=== PATIENT | female | born 1990 | race Caucasian/White ===

== ENCOUNTER 2018-03-04 11:06 | Inpatient (IN) | payer BC, OTHER ==
[~2018-03-04] VITALS: Ht 167.6 cm; Wt 79.4 kg
--- NOTE | 2018-03-05 14:20 | NUR ---
PRE-ASSESSMENT: assessed pt in intake office pt is extremely intoxicated, no Labored breathing noted V/S WNL. pt is slurring her words and appears to be a poor historian on usage and what treat facilities she attended. explained well and thoroughly unit facility and protocols pt verbalized she understands.
--- NOTE | 2018-03-05 15:15 | NUR ---
ADMISSION Patient arrived on the unit at 1515 with WELL PULLER HEAD, noted with unsteady gait. Patients body search completed by female WELL PULLER HEAD, no contraband was found. Patients body assessment completed, noted with multiple track montgomery on bilateral hands and right foot. Patient also noted with scabs and scars on chest per patient from skin picking, no open wounds were noted, no breakdown or discoloration was noted. Patient noted with swelling non pitting to left foot. Patient was oriented to unit and to room, education regarding call light use was provided. Patient is alert and oriented x4, reports no known drug or food allergies. Patient is very intoxicated. Noted slow responsive, eyes closed, nodding off, slurred speech, disheveled, somnolent, lethargic, but responsive to verbal stimuli and able to open eyes upon command. Patient noted to be a poor historian, has disorganized thoughts. Has depressed mood, tearful at time, anxious and worried with flat affect. BP: 111/59 HR: 88 T: 98.4 O2 SAT: 93%. Patients pupils are equal and slow reactive, 3mm. Lungs clear upon ausculation. respiration are even and unlabored. Abdomen is soft and non distended, bowel sounds heard in all quadrants. Patient reports she currently resides in [facility] with her parents. Reports she is currently unemployed. Reports he primary care physician is Dr. Alvarez in [facility]. Patient reports family history of substance use: Grandfather " he was an alcoholic" Patient denies any history of seizures. Patient reports that in that past has had an episode of overdose, reports three weeks ago she overdosed on heroin, and her friend gave her Narcan, she did not receive any medical care. Patient reports past medical history of: anxiety, depression, OCD, ADD. Patient denies any SI/SA. Patient denies any involuntary psychiatric hospitalization. patient with substance use of: 1. Klonopin, began using Klonopin at the age of [age] years old and for the past three years has been taking 2 mg PO QD, last took 03/05/2018 4mg PO approximately 1300. 2. heroin, began using heroin at the age of [age] years old, and for the past 2 months has been taking 1 gram QD IV, last used on 03/02/2018 at 1300 1 gram. 3. Suboxone, began taking Suboxone 3 days ago, and for the past 3 days reports she is taking 8mg SL QD. Patient also reported that prior to starting Suboxone was taking Subutex 18mg SL QID for three weeks, reports she continued to use heroin, while on Subutex. 4. Methamphetamine, patient reports began using 6 years ago, and for the past 2 years has been taking 3 grams QD IV, last used: 03/04/2018 5. marijuana, [facility]. reports occasional use, non daily. last used 03/01/2018 , 1 gram. 6. etoh, occasional use, reports rarely drinks, but today consumed seven beers. Patient reports common s/sx of her withdrawal are: " anxiety, panic attacks, craving, restless legs, anxiety, body aches, sweats, and tremors. Patient reports she has intended to detox on her own before, with no success. Patient does report longest period of sobriety: January 24, 2014-December 2014. Patient reports treatment history of: [facility]: Last Month for 3 days, completed then was taken to [facility] was there for two days, and left AMA. Patient reports she the reason she uses drugs is because " i don't wanna face reality, I am afraid to", verbalized she wants to get sober " because i want a change at having a life". Patient reports this time will be different " the environment Im in this time is different its what i have been wanting. Patients safety precautions observed and are in place. call light kept with in reach, close observation will be provided. Dr. Kingsley Velarde notified of new admission, all pertinent information was discussed. Admitting orders were obtained. Will continue to monitor closely.
[2018-03-05] MEDS ORDERED: BUPRENORPHINE HCL 2 MG TAB.SUBL SL PRN (15:45)
[2018-03-05] MEDS ORDERED: ONDANSETRON ODT 4 MG TAB.RAPDIS SL PRN (15:45)
[2018-03-05] MEDS ORDERED: ONDANSETRON 4 MG/2 ML VIAL IM PRN (15:45)
[2018-03-05] MEDS ORDERED: ACETAMINOPHEN 325 MG TABLET PO PRN (15:45)
[2018-03-05] MEDS ORDERED: 5 DAY TAPER BUPRENORPHINE -SERENITY PROTOCOL SL PRN (15:45)
[2018-03-05] MEDS ORDERED: IBUPROFEN 600 MG TABLET PO PRN (15:45)
[2018-03-05] MEDS ORDERED: LOPERAMIDE HCL 2 MG CAPSULE PO PRN (15:45)
[2018-03-05] MEDS ORDERED: MIRALAX 17 GM POWD.PACK PO PRN (15:45)
[2018-03-05] MEDS ORDERED: 6 DAY PHENOBARBITAL TAPER -SERENITY PROTOCOL PO PRN (15:45)
[2018-03-05] MEDS ORDERED: MAGNESIUM HYDROXIDE 30 ML LIQUID UDC PO PRN (15:45)
[2018-03-05] MEDS ORDERED: MAG HYDROX/AL HYDROX/SIMETH 30 ML LIQUID UDC PO PRN (15:45)
[2018-03-05] MEDS ORDERED: LORAZEPAM 1 MG TABLET PO PRN ×2 (15:45)
[2018-03-05 15:47] VITALS: BP 111/59
[2018-03-05 16:20] LABS: BASOPHILS # (AUTO) 0.1 K/uL (0.0-8.0); BASOPHILS % (AUTO) 0.9 % (0.0-2.0); EOSINOPHILS # (AUTO) 0.9 K/uL (0.0-0.7); EOSINOPHILS % (AUTO) 11.5 % (0.0-7.0); HEMATOCRIT 37.9 % (31.2-41.9); HEMOGLOBIN 12.8 g/dL (10.9-14.3); LYMPHOCYTES # (AUTO) 3.6 K/uL (20.0-40.0); LYMPHOCYTES % (AUTO) 45.8 % (20.5-51.5); MEAN CORPUSCULAR HEMOGLOBIN 30.6 uug (24.7-32.8); MEAN CORPUSCULAR HGB CONC 34 g/dL (32.3-35.6); MEAN CORPUSCULAR VOLUME 90.6 fL (75.5-95.3); MONOCYTES # (AUTO) 0.9 K/uL (2.0-10.0); MONOCYTES % (AUTO) 11.7 % (0.0-11.0); NEUTROPHILS # (AUTO) 2.3 K/uL (1.8-8.9); NEUTROPHILS % (AUTO) 30.1 % (38.5-71.5); PLATELET COUNT (AUTO) 315 K/uL (179-408); RED BLOOD CELL COUNT(AUTO) 4.18 MIL/uL (3.63-4.92); WHITE BLOOD COUNT (AUTO) 7.8 K/uL (3.8-11.8)
[2018-03-05 16:28] LABS: ETHANOL < 3 MG/DL (0-0)
[2018-03-05 16:32] LABS: ALANINE AMINOTRANSFERASE 54 U/L (14-59); ALKALINE PHOSPHATASE 91 U/L (50-136); ASPARTATE AMINOTRANSFERASE 39 U/L (15-37); BILIRUBIN,TOTAL 0.3 mg/dL (0.2-1.0); CARBON DIOXIDE 28 mmol/L (21-32); CHLORIDE 102 mmol/L (98-107); CREATININE 1.1 mg/dL (0.6-1.3); GLUCOSE 83 mg/dL (74-106); MAGNESIUM 1.9 mg/dL (1.8-2.4); POTASSIUM 4.1 mmol/L (3.5-5.1); TOTAL PROTEIN, SERUM 7.9 g/dL (6.4-8.2); UREA NITROGEN, BLOOD 13 mg/dL (7-18)
[2018-03-05 17:00] VITALS: BP 112/64
--- NOTE | 2018-03-05 17:00 | NUR ---
PT COMPLAIN Patient reported that she is having difficulty urinating, no hematuria noted. MD aware, scheduled for urinalysis, pending specimen.
--- NOTE | 2018-03-05 17:20 | NUR ---
COW/CIWA ASSESSMENT DEFERRED Unable to assess COW/CIWA assessment patient noted intoxicated. no s/sx of withdrawal evident at this time.
[2018-03-05] MEDS ORDERED: PROP20TA7 PO (18:09)
[2018-03-05] MEDS ORDERED: HYDR-3028 PO (18:09)
[2018-03-05] MEDS ORDERED: MELA5TAB PO (18:09)
[2018-03-05] MEDS ORDERED: CLON0.1T PO (18:09)
[2018-03-05] MEDS ORDERED: FLUV150C2 PO (18:09)
[2018-03-05] MEDS ORDERED: GABA600T2 PO (18:09)
[2018-03-05] MEDS ORDERED: ARIP10TA9 PO (18:09)
[2018-03-05] MEDS ORDERED: ONDA4TAB11 PO (18:09)
[2018-03-05] MEDS ORDERED: CRAN450T9 PO (18:09)
[2018-03-05] MEDS ORDERED: QUET50TA PO (18:09)
[2018-03-05] MEDS ORDERED: BUPR1FIL3 SL (18:09)
--- NOTE | 2018-03-05 19:06 | NUR ---
END OF SHIFT Patient admitted during shift, with admitting Dx: opiate/bzo withdrawal. Patient is scheduled to begin a 6 day phenobarbital and 5 day Subutex taper as ordered. Patient has PRN Ativan and Subutex available for s/sx of withdrawal. During shift patient exhibited no s/sx of withdrawal, due to intoxicated. Patients vital signs WNL. Safety measures are in place. call light kept with in reach. patient has not provided UDS, endorsed to group leader semiconductor testing nurse to f/u. all pertinent information was discussed with group leader semiconductor testing nurse.
--- NOTE | 2018-03-05 19:20 | NUR ---
START OF SHIFT Patient is a 27-year-old female admitted today 03/05/18 for benzodiazepine and opiate withdrawal, with a history of polysubstance abuse; patient arrived on the unit at 1515. Per endorsement, patient arrived intoxicated and no COWS or CIWA assessment has been performed. Patient is scheduled to start a 6-day Phenobarbital and 5-day Subutex taper tomorrow morning. Patient has PRN medications available for signs and symptoms of withdrawal on hand. Upon assessment, patient is sleeping but opens her eyes when her name is called. Patient is alert and oriented x4, flushed and diaphoretic. Patient currently has a steady gait and is able to give urine for UA, but will continue 1:1 at bedside for safety. Patient complains of headache and some generalized itchiness stating, Im not intoxicated anymore although she continues to appear drowsy and lethargic. Patient states that her anxiety is high and that she has difficulty sleeping stating, I usually take Seroquel to help me sleep. Patient is on fall and seizure precautions, denies history of seizure. Safety measures in place, side rails up x2, bed locked in low position, call light within reach, 1:1 at bedside. Will continue to monitor.
[2018-03-05 20:00] VITALS: BP 121/80
--- NOTE | 2018-03-05 20:00 | NUR ---
ERIC & JACOBO DEFERRED Patient is drowsy, lethargic, and continues to slur her words when speaking. Despite verbalizing "I'm not intoxicated anymore" patient does not exhibit signs or symptoms of withdrawal at this time. ERIC and JACOBO deferred. Charge nurse notified. Will continue to monitor.
[2018-03-05 20:37] LABS: *BILIRUBIN,URIN NEGATIVE (NEGATIVE); *BLOOD, URINE NEGATIVE (NEGATIVE); *CLARITY,URINE SLIGHTLY CLOUDY (CLEAR); *KETONES,URINE NEGATIVE (NEGATIVE); *PROTEIN,URINE NEGATIVE (NEGATIVE); *URINE HCG, QUAL NEGATIVE (NEGATIVE); *UROBILINOGEN,URINE 0.2 E.U./dl (NORMAL); LEUKOCYTE ESTERASE ,URINE TRACE (NEGATIVE); NITRITE, URINE NEGATIVE (NEGATIVE); UGLUCOSE NEGATIVE (NEGATIVE)
[2018-03-05 20:50] LABS: *COLOR,URINE YELLOW (YELLOW)
[2018-03-05 20:52] LABS: BACTERIA,URINE MODERATE /HPF (NONE SEEN); SQUAMOUS EPITHELIAL CELL,UR MANY /HPF (NONE SEEN)
[2018-03-05 20:57] LABS: *AMPHETAMINE, URINE NEGATIVE (NEGATIVE); *BARBITURATE, URINE NEGATIVE (NEGATIVE); *CANNABINOID, URINE NEGATIVE (NEGATIVE); *COCCAINE, URINE NEGATIVE (NEGATIVE); *OPIATE, URINE NEGATIVE (NEGATIVE); *PHENCYCLIDINE SCREEN,URINE NEGATIVE (NEGATIVE)
[2018-03-05] MEDS ORDERED: THIAMINE HCL 200 MG/2 ML VIAL IM ONE (21:00)
--- NOTE | 2018-03-05 22:30 | NUR ---
COWS & CIWA @ 2230 Patient appears to exhibit some signs of withdrawal; current COWS 6 and CIWA 7.
--- NOTE | 2018-03-05 22:41 | NUR ---
PRN MOTRIN & ATIVAN 2mg Patient has begun to verbalize feeling "very anxious" and appears agitated. Patient complains of headache 6/10. PRN Ativan 2mg given PO and Motrin 600mg given PO. Safety measures in place, side rails up x2, bed locked in low position, call light within reach, 1:1 at bedside. Will monitor for effectiveness.
[2018-03-05] MEDS ORDERED: diphenhydrAMINE 50 MG CAPSULE PO PRN (23:00)
--- NOTE | 2018-03-05 23:13 | NUR ---
PRN BENADRYL Patient reports feeling "itchy" and states, "this happens sometimes when I'm withdrawing." PRN Benadryl given PO. Safety measures in place, side rails up x2, bed locked in low position, call light within reach, 1:1 at bedside. Will monitor for effectiveness.
--- NOTE | 2018-03-05 23:41 | NUR ---
PRN MOTRIN & ATIVAN REASSESSMENT Patient appears drowsy and sleepy, eyes slow to open and close. Patient reports that headache has improved, 2/10 on pain scale. PRN Motrin effective. Patient reports "feeling better" and appears less agitated. Safety measures in place, side rails up x2, bed locked in low position, call light within reach, 1:1 at bedside. Will continue to monitor.
[2018-03-06] VITALS: BP 104/50
--- NOTE | 2018-03-06 00:13 | NUR ---
PRN BENADRYL REASSESSMENT Patient is observed sleeping in bed with eyes closed, respirations even and unlabored. Unable to reassess PRN Benadryl effectiveness at this time. Safety measures in place, side rails up x2, bed locked in low position, call light within reach, 1:1 at bedside. Will continue to monitor.
--- NOTE | 2018-03-06 03:30 | NUR ---
COWS & CIWA @ 0330 Patient's current COWS is 6 and CIWA is 8. Patient complains of body aches, mild headache, feeling anxious and is eager to start her tapers in the morning. Safety measures in place, call light within reach, 1:1 at bedside. Will continue to monitor.
[2018-03-06] MEDS: HYDROXYZINE PAMOATE 25 MG CAPSULE PO PRN ×2 (03:33→21:03)
--- NOTE | 2018-03-06 03:33 | NUR ---
PRN TYLENOL & VISTARIL Patient woke up and reports mild body aches and feeling "anxious." PRN Tylenol and Vistaril given PO. Safety measures in place, side rails up x2, bed locked in low position, call light within reach. Will monitor for effectiveness.
[2018-03-06 04:00] VITALS: BP 92/50
--- NOTE | 2018-03-06 04:33 | NUR ---
PRN TYLENOL & VISTARIL REASSESSMENT Patient is observed sleeping in bed, eyes closed, respirations even and unlabored. Unable to reassess PRN Tylenol and Vistaril. Safety measures in place, side rails up x2, bed locked in low position, call light within reach, 1:1 at bedside. Will continue to monitor.
[2018-03-06] MEDS ORDERED: NORE0.3518 PO (06:28)
--- NOTE | 2018-03-06 07:01 | NUR ---
END OF SHIFT Patient is a 27-year-old female admitted yesterday 03/05/18 for benzodiazepine and opiate withdrawal, with a history of polysubstance abuse. Per endorsement, patient arrived intoxicated and no COWS or CIWA assessment was done upon admission. Patient is scheduled to start a 6-day Phenobarbital and 5-day Subutex taper today. Patient has had the following PRN medications: Ativan 2mg PO, Motrin 600mg PO, Benadryl 50mg PO, Vistaril and Tylenol PO; meds were noted as effective upon reassessment. Last COWS was 6 and last CIWA was 8 at 0330. Patient slept for 6 hours, total intake of 1,909mL, void x5, stool x0. Urine cultures pending. Patient is on fall and seizure precautions, denies history of seizure. Safety measures in place, side rails up x2, bed locked in low position, call light within reach, 1:1 at bedside. Will endorse to day shift.
--- NOTE | 2018-03-06 07:40 | NUR ---
START OF SHIFT PT IS A 27 Y/O F ADMITTED ON 03/05/18 FOR MEDICALLY SUPERVISED BENZO, HEROIN AND METH WITHDRAWAL. PT IS PLACED ON 6 DAY PHENOBARBITAL AND 5 DAY SUBUTEX TAPER STARTING TODAY. PT IS IN BED WITH EYES CLOSED, SLEEPING WITH A 1:1 SITTER AT BEDSIDE. LAST 6 AND CIWA 8 @0330. ATIVAN 2 MG, IBUPROFEN, TYLENOL, VISTARIL, BENADRYL PRNS WERE GIVEN LAST NIGHT. URINE CULTURES PENDING. SIDE RAILS UPX2 AND PADDED, BED IN LOWEST POSITION. CALL LIGHT WITHIN REACH. SAFETY MEASURES IN PLACE. WILL CONTINUE TO MONITOR.
[2018-03-06 08:00] VITALS: BP 115/59
[2018-03-06] MEDS: THIAMINE HCL 100 MG TABLET PO SCH (08:29)
[2018-03-06] MEDS: FOLIC ACID 1 MG TABLET PO SCH (08:29)
[2018-03-06] MEDS: MULTIVITAMINS,THERAPEUTIC TABLET PO SCH (08:29)
[2018-03-06] MEDS: PHENOBARBITAL 60 MG TABLET PO SCH ×4 (08:29→21:04)
[2018-03-06] MEDS: BUPRENORPHINE HCL 2 MG TAB.SUBL SL SCH ×4 (08:30→21:10)
--- NOTE | 2018-03-06 08:30 | NUR ---
COWS/ CIWA ASSESSMENT COWS 11 AND CIWA 14. PT HAS A FLAT AFFECT, PRESENTING ANXIETY, AGITATION, RESTLESSNESS, PUPIL LARGER THAN NORMAL, DIAPHORESIS, CHILLS, INTERMITTENT HOT/COLD FLASHES, GOOSEBUMPS, NASAL CONGESTION, GENERALIZED BODY ACHES, TREMORS NOTED.
[2018-03-06] MEDS ORDERED: TUBERCULIN,PURIF.PROT.DERIV. 5 TU/0.1 ML TEST ID ONE (09:00)
[2018-03-06] MEDS ORDERED: Medication Not On Formulary EA (Gabapentin 600 MG) PO PRN (11:30)
[2018-03-06] MEDS ORDERED: Medication Not On Formulary EA (Quetiapine Fumarate (Seroquel) 50 MG) PO PRN (11:30)
[2018-03-06 12:00] VITALS: BP 99/63
[2018-03-06] MEDS ORDERED: QUETIAPINE FUMARATE 25 MG TABLET PO PRN (12:00)
--- NOTE | 2018-03-06 12:00 | NUR ---
COWS / CIWA ASSESSMENT COWS 15 AND CIWA 16. PT IS LAYING IN BED WITH SITTER AT BEDSIDE WITH A WORRIED AFFECT. PT PRESENTS ANXIETY, AGITATION, RESTLESSNESS, CHILLS, COLD/HOT FLASHES, PILOERECTION OF THE SKIN, FATIGUE, GENERALIZED BODY ACHES, JOINT AND BONE ACHES, STOMACH CRAMPS, HEADACHE, SWEATING, CLAMMY SKIN, PUPILS LARGER THAN NORMAL, SENSITIVITY TO THE LIGHT, NASAL CONGESTION, PINS AND NEEDLES SENSATIONS AND GROSS TREMORS NOTED.
--- NOTE | 2018-03-06 12:35 | NUR ---
COMMUNICATIONS 1:1 DISCONTINUED BY . Addendum: 03/06/18 at 1748 by HERBERT BAÑUELOS RN PT IS OBSERVED TO HAVE A STEADY GAIT AND IS WALKING WITHOUT ASSISTANCE.
[2018-03-06] MEDS: FLUVOXAMINE MALEATE 50 MG TABLET PO SCH ×2 (13:40→21:07)
[2018-03-06] MEDS: METHOCARBAMOL 750 MG TABLET PO PRN (13:41)
[2018-03-06] MEDS: GABAPENTIN 300 MG CAPSULE PO PRN (13:42)
[2018-03-06 16:00] VITALS: BP 111/62
--- NOTE | 2018-03-06 16:00 | NUR ---
COWS / CIWA ASSESSMENT 1600 COWS 18 CIWA 17. PT C/O INCREASED S/S OF WITHDRAWAL, INCREASED ANXIETY, AGITATION, LABILE MOOD, EASILY IRRITABLE, C/O SWEATING, CHILLS, HOT/COLD FLASHES, GENERALIZED BODY ACHES, DILATED PUPILS, RESTLESSNESS, CLAMMY SKIN, INCREASED EMOTIONAL AMPLITUDE, PINS AND NEEDLES SENSATION, AND NASAL CONGESTION.
--- NOTE | 2018-03-06 18:42 | NUR ---
END OF SHIFT 1:1 SITTER HAS BEEN D/C; PT IS ABLE TO WALK STEADY WITHOUT ASSISTANCE. PT APPEARS DISHEVELED, HAS UNKEMPT DIRTY HAIR, AND HAS BEEN ISOLATIVE IN ROOM, AND BEING EASILY IRRITABLE WITH A LABILE MOOD DURING SHIFT. PT HAD INCREASING S/S OF WITHDRAWAL. LAST COWS 18 AND CIWA 17 @1600. PT REPORTED RIGHT FOOT SWELLING DUE TO IV USAGE. ENCOURAGED PT TO INCREASE FOOD INTAKE; PT C/O POOR APPETITE AND ATE 25% OF MEALS. FLUID INTAKE 1401 ML, VOIDED X3, BM X1. SAFETY MEASURES IN PLACE.
--- NOTE | 2018-03-06 19:30 | NUR ---
Start of Shift Pt was admitted 03/05/18 for medically managed withdrawal from Klonopin, Heroin, Suboxone, Methamphetamine salts, ETOH, and Marijuana, Pt is a full code, with NKA's, and on a regular diet. Pt is on a 5 day Suboxone and 6 day Phenobarbitol taper, day 1 for both. Pt is oriented x 4, disheveled with a flat affect, avoidant eye contact (stares into space), diaphoresis, tremors, c/o anxiety and agitation with frequent shifting, and GI cramps. Pt states she's had a UTI, was on antibiotics prior week, c/o present dysuria. U/A and culture results discussed with pt, pt unable to recall if she discussed with MD on his evening rounds. Pt requesting Ativan for anxiety, able to accept no longer available and alternatives offered. Full safety measures remain in effect, will monitor for duration of shift for any s/sx's distress or withdrawal and promptly attend
[2018-03-06 20:00] VITALS: BP 104/65
--- NOTE | 2018-03-06 20:00 | NUR ---
COWS and CIWA assessments COWS 17, CIWA 16. Improvement by 1 point each from 1600. Variances between the 2 include a lower HR (73) for 1999, nasal congestion increase, GI distress/cramping, and decrease in hand tramors. Addendum: 03/07/18 at 0003 by GOMEZ DEL TORO RN Diaphoresis score increased, and agitation decreased from 1600.
[2018-03-06] MEDS ORDERED: FLUVOXAMINE MALEATE 150 MG PO SCH (21:00)
--- NOTE | 2018-03-06 21:03 | NUR ---
PRN Med Vistaril 25mg PO given for pt c/o anxiety, COWS 17, CIWA 16. Will continue to monitor pt, reassessing in 1 hour.
[2018-03-06] MEDS: ARIPIPRAZOLE 10 MG TABLET PO SCH (21:04)
--- NOTE | 2018-03-06 21:05 | NUR ---
PRN Med Seroquel, 50mg PO given for pt c/o anxiety and insomnia. Will continue to monitor pt, reassessing in 1 hour.
--- NOTE | 2018-03-06 21:07 | NUR ---
PRN Reassessment Milk of Magnesia 30mg PO given 1 hour prior for constipation. Presently no r/o BM, but pt reports some "activity". Will continue to monitor and promptly attend to any s/sx's w/d or distress.
--- NOTE | 2018-03-06 21:07 | NUR ---
PRN Med Milk of Magnesia 30ml PO given for pt c/o constipation. Will continue to monitor pt, reassessing in 1 hour.
--- NOTE | 2018-03-06 22:03 | NUR ---
PRN Reassessment Vistaril 25mg PO given 1 hour prior for anxiety. At present pt reports some improvement in anxiety and appears intoxicated, (i.e. eyes almost closed, speech slurred, gait unsteady). Med effective.
--- NOTE | 2018-03-06 22:05 | NUR ---
PRN Reassessment Seroquel 50mg PO given 1 hour prior for anxiety and insomnia. At present pt still awake but reports anxiety improved, appears intoxicated with slurred speech, eyes barely open, unsteady gait. Med effective.
[2018-03-06] MEDS: diphenhydrAMINE 50 MG CAPSULE PO PRN (22:15)
--- NOTE | 2018-03-06 22:15 | NUR ---
PRN Med Benedryl 50mg PO given for pt c/o insomnia. Will continue to monitor pt, reassessing in 1 hour.
--- NOTE | 2018-03-06 23:15 | NUR ---
PRN Reassessment Benedryl 50mg PO given 1 hour prior for insomnia. At present pt is sleeping. Med effective. Will continue to monitor for duration of shift for any s/sx's distress or w/d and promptly attend.
[2018-03-07] VITALS: BP 95/49
--- NOTE | 2018-03-07 | NUR ---
COWS/CIWA Deferred Midnight COWS and CIWA deferred r/t pt sleeping/refused. RR 14, even and nonlabored. Will continue to monitor, promptly attending to all s/sx's w/d or distress.
[2018-03-07 04:00] VITALS: BP 99/57
--- NOTE | 2018-03-07 04:00 | NUR ---
COWS/CIWA Deferred 0400 VS's obtained, COWS and CIWA deferred r/t pt sleeping/refused. Will continue to monitor, promptly attending to all s/sx's w/d or distress.
--- NOTE | 2018-03-07 07:01 | NUR ---
End of Shift Endorsement given to day nurse. Pt was admitted 03/05/18 for medically managed withdrawal from Klonopin, Heroin, Suboxone, Methamphetamine salts, ETOH, Pt is a full code, with NKA's, and on a regular diet. Pt is on a 5 day Suboxone and 6 day Phenobarbitol taper, starting day 2 for both. Pt received Milk of Magnesia 30ml PO Seroquel 50mg PO, Vistaril 25mg PO and Benedryl 50mg PO as PRN's for shift. Pt slept for 10 hours, with 1855 mls intake and 3 voids. Last COWS was 17, CIWA 16 at 2000 hours. Affect remains flat with poor eye contact/stares into space. Pt depressed/sad with "loose" thoughts. Pt convince she has an active UTI contrary to lab results, have passed in endorsement. Full safety measures remain in place.
--- NOTE | 2018-03-07 07:44 | NUR ---
Start of shift note; Received report from night nurse. Patient is a 27 year old admitted on 03/05/18 for Benzodiazepine, Opiate, ETOH withdrawal. Patient was placed on 6 day Phenobarbital taper and 5 day Subutex taper, currently on second day of taper. Patient has a flat affect, appears disheveled, room is cluttered, patient is anxious complaining of muscle aches, diaphoresis, stomach cramps, tremors, avoidant to eye contact. Educated patient regarding the importance of compliance to treatment and medication regime. Encouraged patient to participate in group activity and therapy. All safety measures secured. Will continue to monitor patient.
[2018-03-07 08:00] VITALS: BP 114/62
--- NOTE | 2018-03-07 08:00 | NUR ---
COWS /CIWA assessment; Patient is AOX4, current COWS score is 18 and CIWA of 16 manifested by diaphoresis, tremors, muscle aches, anxiety, agitation, stomach cramps, patient appears disheveled with flat affect, difficulty concentrating with poor judgement. Patient's room is cluttered. Patient is complaining of difficulty urinating, will notify MD during MD rounds.
[2018-03-07] MEDS: FLUVOXAMINE MALEATE 50 MG TABLET PO SCH ×2 (09:01→21:33)
[2018-03-07] MEDS: FOLIC ACID 1 MG TABLET PO SCH (09:01)
[2018-03-07] MEDS: THIAMINE HCL 100 MG TABLET PO SCH (09:01)
[2018-03-07] MEDS: PHENOBARBITAL 60 MG TABLET PO SCH ×3 (09:01→21:32)
[2018-03-07] MEDS: MULTIVITAMINS,THERAPEUTIC TABLET PO SCH (09:01)
[2018-03-07] MEDS: BUPRENORPHINE HCL 2 MG TAB.SUBL SL SCH ×3 (09:01→21:31)
[2018-03-07] MEDS: GABAPENTIN 300 MG CAPSULE PO PRN (11:37)
--- NOTE | 2018-03-07 11:42 | NUR ---
PRN Medication; Patient appears anxious, pacing back and forth in the room. PRN Neurontin 600mg PO given for anxiety per MD order. Will continue to monitor patient.
[2018-03-07 12:00] VITALS: BP 98/63
--- NOTE | 2018-03-07 12:24 | NUR ---
COWS /CIWA assessment; Patient is AOX4, continues to remain COWS score of 18 and CIWA of 16 manifested by diaphoresis, tremors, muscle aches, anxiety, agitation, stomach cramps, patient appears disheveled with flat affect, difficulty concentrating with poor judgement. Patient's room is cluttered. Will continue to monitor.
--- NOTE | 2018-03-07 12:38 | NUR ---
MD communication; MD on unit. Notified MD regarding urine culture /urine test result. No new orders noted. Per MD no UTI noted. Will closely monitor patient.
--- NOTE | 2018-03-07 12:42 | NUR ---
Re-assessment; Patient appears calm and comfortable, no further anxiety noted. PRN Neurontin is effective.
[2018-03-07] MEDS ORDERED: Medication Not On Formulary EA (Melatonin 5 MG) PO PRN (13:45)
[2018-03-07] MEDS ORDERED: QUETIAPINE FUMARATE 25 MG TABLET PO PRN (15:00)
[2018-03-07 16:00] VITALS: BP 97/60
--- NOTE | 2018-03-07 16:00 | NUR ---
COWS /CIWA assessment; Patient is AOX4, current COWS score of 15 and CIWA of 15 manifested by diaphoresis, tremors, muscle aches, anxiety, agitation, stomach cramps, patient appears disheveled with flat affect, difficulty concentrating with poor judgement. Will continue to monitor.
--- NOTE | 2018-03-07 18:14 | NUR ---
Client was prompted to attend daily group therapy sessions.
--- NOTE | 2018-03-07 18:34 | NUR ---
End of shift note; Patient is AOX4, presented with anxiety, agitation, abdominal cramps, muscle aches, flat affect noted, avoidant to eye contact. Patient's last COWS score is 15 and last CIWA is 15 at 1600. Patient received PRN Neurontin for anxiety noted to be effective. Urine culture result was relayed to MD, MD is aware of patient's report of difficulty urinating. Patient was seen and evaluated by MD, no UTI noted per MD. No new order noted. Patient remained compliant with treatment plan and medication regime. All safety measures secured. Met all needs.
--- NOTE | 2018-03-07 19:30 | NUR ---
Start of Shift Pt admitted 03/05/18 for medically managed withdrawal from Benzodiazapines, Opiates, ETOH, and Methamphetamine salts. Pt presents with PPH of Anxiety, Depression, OCD and ADD on a regular diet, listed as a full code with NKAs. Pt found in room sleeping, arousable to voice. Oriented x4, pt presents with flat affect, disheveled with uncombed hair and odor in room. Speech is slurred as pt complains of her UTI worsening. Pt told day nurse consulted with MD, no evidence of UTI active, cultures negative, and to continue with hydration. Pt states she misses her family. Stress reduction and coping skills reviewed and pt educated, pt verbalizing acknowledgement. Full safety measures, fall and seizure, remain in place with bed in lowest position, locked and side rails up and padded x 2. Will monitor pt for duration of shift for any s/sxs of distress or w/d and promptly attend.
[2018-03-07 20:00] VITALS: BP 111/60
--- NOTE | 2018-03-07 20:00 | NUR ---
COWS/CIWA Assessment COWS 15, amb increased anxiety and restlessness, pupils larger than normal, yawning, some generalized aches, nasal congestion. CIWA 14, amb increased anxiety and agitation. diaphoresis, itching, H/A, and dyspepsia.
[2018-03-07] MEDS: diphenhydrAMINE 50 MG CAPSULE PO PRN (21:32)
[2018-03-07] MEDS: QUETIAPINE FUMARATE 100 MG TABLET PO PRN (21:32)
[2018-03-07] MEDS: HYDROXYZINE PAMOATE 25 MG CAPSULE PO PRN (21:32)
[2018-03-07] MEDS: ARIPIPRAZOLE 10 MG TABLET PO SCH (21:32)
--- NOTE | 2018-03-07 21:32 | NUR ---
PRN Meds Benedryl 50mg PO for itching to bilateral forearms, r foot (track montgomery), Vistaril 25mg PO for anxiety, and Seroquel 100mg for sleep given. Will continue to monitor, reassessing in 1 hour.
[2018-03-07] MEDS: NORETHINDRONE 0.35 MG PO SCH (21:33)
--- NOTE | 2018-03-07 22:32 | NUR ---
PRN Reassessment Benedryl for itching, Vistaril for anxiety and Seroquel for insomnia given 1 hour prior. At present pt is sleeping. RR 14, even and nonlabored. Meds effective.
[2018-03-08] VITALS: BP 92/50
--- NOTE | 2018-03-08 | NUR ---
COWS/CIWA Assessment COWS 11, amb increased anxiety and restlessness, pupils larger than normal, yawning, some generalized aches, nasal congestion. CIWA 12, amb increased anxiety and agitation. diaphoresis, itching, H/A.
[2018-03-08] MEDS: MELATONIN 3 MG TABLET PO PRN (01:42)
[2018-03-08] MEDS: CLONIDINE HCL 0.1 MG TABLET PO PRN (01:44)
--- NOTE | 2018-03-08 01:44 | NUR ---
PRN Meds Clonidine 0.1mg PO for anxiety/agitation, and Melatonin 6mg PO for insomnia given. Will continue to monitor and reassess in 1 hour.
--- NOTE | 2018-03-08 02:44 | NUR ---
PRN Reassessment Clonidine 0.1mg PO for anxiety and Melatonin 6mg PO for insomnia given 1 hour prior. Currently pt is sleeping. Med effective. Will continue to monitor pt promptly attending to all s/sx's distress or w/d.
--- NOTE | 2018-03-08 04:00 | NUR ---
VS's, COWS/CIWA Deferred 0400 VS's, COWS/CIWA deferred r/t pt sleeping/refused. RR 14, even and nonlabored. Will continue to monitor and promptly attend to all s/sx's w/d or distress.
--- NOTE | 2018-03-08 07:13 | NUR ---
Start of Shift Endorsement given to [facility] day nurse. Pt admitted 03/05/18 for medically managed withdrawal from Benzodiazepines, ETOH, Opiates, and Methamphetamine salts starting 3rd day of a 6 day Phenobarbitol and 5 day Subutex tapers. Pt presents with a flat affect, disheveled, at times sad and worried, hypoactive, obsessed with belief she has a UTI despite negative urine cultures, MD consult. Pt able to be reassured. At other times pt appears euphoric with relative hyperactivity/urszula. PRNs for shift include Benedrl 50mg PO, Seroquel 100mg PO, Vistaril 25mg PO, Clonidine 0.1mg PO and Melatonin 6mg PO. Pt slept for 5 hours with 1500mls intake and 3 voids. Full safety measures remain in place.
--- NOTE | 2018-03-08 07:45 | NUR ---
START OF SHIFT PT IS A 27 Y/O F ADMITTED ON 03/05/18 FOR MEDICALLY SUPERVISED BENZO, HEROIN AND METH WITHDRAWAL. PT IS PLACED ON 6 DAY PHENOBARBITAL AND 5 DAY SUBUTEX TAPER, TODAY IS THE 3RD DAY AND TOLERATING WELL. PT HAS A DISHEVELED APPEARANCE, HAS A FLAT AFFECT, PRESENTS RESTLESSNESS, DIAPHORESIS, PUPILS LARGER THAN NORMAL, GENERALIZED BODY ACHES, NASAL CONGESTION, ANXIETY, AGITATION, HEADACHE, NAUSEA, PINS AND NEEDLES SENSATIONS AND TREMORS NOTED. LAST COWS 11 AND CIWA 14 @ [place]. MELATONIN, VISTARIL, SEROQUEL, BENADRYL PRNS WERE GIVEN LAST NIGHT. SIDE RAILS UPX2 AND PADDED, BED IN LOWEST POSITION. CALL LIGHT WITHIN REACH. SAFETY MEASURES IN PLACE. WILL CONTINUE TO MONITOR.
--- NOTE | 2018-03-08 08:00 | NUR ---
COWS AND CIWA ASSESSMENT 0800 COWS 13 AND CIWA 16. UPON ENTERING ROOM, PT IS A/OX4, LAYING IN BED, PT HAS A DISHEVELED APPEARANCE, A FLAT AFFECT, PT PRESENTS RESTLESSNESS, DIAPHORESIS, PUPILS LARGER THAN NORMAL, GENERALIZED BODY ACHES, NASAL CONGESTION, ANXIETY, AGITATION, HEADACHE, NAUSEA, PINS AND NEEDLES SENSATIONS AND TREMORS NOTED.
[2018-03-08 08:10] VITALS: BP 94/61
[2018-03-08] MEDS: FOLIC ACID 1 MG TABLET PO SCH (08:33)
[2018-03-08] MEDS: PHENOBARBITAL 60 MG TABLET PO SCH ×4 (08:33→21:51)
[2018-03-08] MEDS: THIAMINE HCL 100 MG TABLET PO SCH (08:33)
[2018-03-08] MEDS: MULTIVITAMINS,THERAPEUTIC TABLET PO SCH (08:33)
[2018-03-08] MEDS ORDERED: BUPRENORPHINE HCL 2 MG TAB.SUBL SL SCH (09:00)
[2018-03-08] MEDS: FLUVOXAMINE MALEATE 50 MG TABLET PO SCH ×2 (09:14→21:51)
--- NOTE | 2018-03-08 12:00 | NUR ---
COWS AND CIWA ASSESSMENT 1200 COWS 11 AND CIWA 16. PT PRESENTS GENERALIZED BODY ACHES, IRRITATION, ANXIETY, AGITATION, RESTLESSNESS, SWEATING, NAUSEA, AND TREMORS NOTED. PT C/O SOB AND CHEST TIGHTNESS FROM SMOKING TOO MUCH. ENCOURAGED PT TO REFRAIN FROM SMOKING TO DECREASED SOB AND CHEST PAIN.
[2018-03-08 12:06] VITALS: BP 97/61
[2018-03-08] MEDS: GABAPENTIN 300 MG CAPSULE PO PRN (13:14)
--- NOTE | 2018-03-08 13:14 | NUR ---
PRN GABAPENTIN 600 MG PO PRN GIVEN FOR C/O ANXIETY. WILL MONITOR AND REASSESS.
--- NOTE | 2018-03-08 14:03 | NUR ---
Client was prompted to attend group therapy sessions and client stated she was not interested at this time.
--- NOTE | 2018-03-08 14:14 | NUR ---
REASSESSMENT PT REPORTED GABAPENTIN WAS EFFECTIVE AND DECREASED HER ANXIETY AND GENERALIZED PAIN. WILL CONTINUE TO MONITOR.
[2018-03-08] MEDS: BUPRENORPHINE HCL 2 MG TAB.SUBL SL SCH ×2 (14:27→21:53)
[2018-03-08 16:00] VITALS: BP 103/66
--- NOTE | 2018-03-08 16:00 | NUR ---
COWS AND CIWA ASSESSMENT 1600 COWS 11 AND CIWA 16. PT CONTINUES TO PRESENT GENERALIZED BODY ACHES, IRRITATION, ANXIETY, AGITATION, RESTLESSNESS, SWEATING, NAUSEA, AND TREMORS NOTED.
--- NOTE | 2018-03-08 19:25 | NUR ---
END OF SHIFT PT HAS BEEN ISOLATIVE IN ROOM THROUGHOUT SHIFT. PT VERBALIZED SHE WANTS TO LEAVE DETOX EARLY; STATES SHE FEELS THOUGH SHE DOESN'T NEED TO BE HERE ANY LONGER. LAST COWS 11 AND COWS 16. PT ATE 75% OF MEALS. PT RECEIVED GABAPENTIN 600 MG PO PRN FOR ANXIETY. SAFETY MEASURES IN PLACE. ENDORSEMENT GIVEN TO LENDING ADVISOR NURSE.
--- NOTE | 2018-03-08 19:30 | NUR ---
START OF SHIFT PT IS A 27 Y/O F ADMITTED ON 03/05/18 FOR MEDICALLY SUPERVISED WITHDRAWALS FROM BENZO, HEROIN AND METH. PT CONTINUES ON 6 DAY PHENOBARBITAL AND 5 DAY SUBUTEX TAPER AND IS TOLERATING WELL.NO ADVERSE REACTIONS NOTED. PT A/A/O X 4,RECEIVED IN ROOM,STATED "I AM READY TO LEAVE.I AM HERE TO DETOX FROM ONLY FROM ALCOHOL AND KLONOPIN AND WANT TO BE ON A MAINTENANCE DOSE OF SUBOXONE WHEN I LEAVE".PT IS ANXIOUS AND FOCUSED ON LEAVING.EMOTIONAL SUPPORT PROVIDED,ENCOURAGED TO DISCUSS HER CONCERNS WITH MD WHO IS CURRENTLY PRESENT ON THE UNIT.LAST COWS WAS 11 AND LAST CIWA WAS 16.ALL SAFETY MEASURES ARE IN PLACE,SIDE RAILS UPX2 AND PADDED, BED IN LOWEST POSITION. CALL LIGHT WITHIN REACH. WILL CONTINUE TO MONITOR.
[2018-03-08 20:00] VITALS: BP 109/71
--- NOTE | 2018-03-08 21:00 | NUR ---
PT STATED THAT SHE SPOKE TO HER DOCTOR AND HE SUGGESTED THAT SHE SHOULD STAY AND FINISH HER TAPER.PT IS WILLING TO STAY AND COMPLETE HER TAPER.
[2018-03-08] MEDS: NORETHINDRONE 0.35 MG PO SCH (21:50)
[2018-03-08] MEDS: ARIPIPRAZOLE 10 MG TABLET PO SCH (21:52)
[2018-03-08] MEDS: diphenhydrAMINE 50 MG CAPSULE PO PRN (22:11)
[2018-03-08] MEDS: QUETIAPINE FUMARATE 100 MG TABLET PO PRN (22:11)
--- NOTE | 2018-03-08 22:12 | NUR ---
PRN MEDS PRN SEROQUEL AND BENADRYL GIVEN FOR C/O ANXIETY AND INSOMNIA.WILL MONITOR FOR EFFECTIVENESS.
--- NOTE | 2018-03-08 23:15 | NUR ---
PRN REASSESSMENT PRN MEDS GIVEN FOR ANXIETY/INSOMNIA ARE NOT EFFECTIVE.PT IS STILL AWAKE. PT ENCOURAGED TO USE RELAXATION TECHNIQUE WITH DEEP BREATHING.EMOTIONAL SUPPORT PROVIDED.WILL CONTINUE TO MONITOR.
[2018-03-09] VITALS: BP 111/74
--- NOTE | 2018-03-09 | NUR ---
COWS AND CIWA ASSESSMENT COWS 10 AND CIWA 10. PT IS STILL AWAKE, C/O GENERALIZED BODY ACHES, ANXIETY, AGITATION, AND RESTLESSNESS. WILL CONTINUE TO MONITOR.
[2018-03-09] MEDS: MELATONIN 3 MG TABLET PO PRN (00:10)
--- NOTE | 2018-03-09 00:10 | NUR ---
PRN MELATONIN GIVEN ORDERED FOR C/O INSOMNIA.WILL MONITOR.
--- NOTE | 2018-03-09 01:10 | NUR ---
PRN REASSESSMENT PT IS CALM AND RESTING IN BED WITH EYE CLOSED.BREATHING IS EVEN AND NON LABORED.NO S/S OF DISTRESS NOTED.WILL CONTINUE TO MONITOR.
[2018-03-09 04:00] VITALS: BP 109/68
--- NOTE | 2018-03-09 04:00 | NUR ---
COWS/CIWA DEFERRED PT IS CALM AND RESTING IN BED WITH EYE CLOSED.BREATHING IS EVEN AND NON LABORED.NO S/S OF DISTRESS NOTED.COWS/CIWA DEFERRED DUE TO PT BEING ASLEEP.WILL CONTINUE TO MONITOR.
[2018-03-09 06:07] LABS: HEPATITIS B SURFACE AG Negative (Negative)
--- NOTE | 2018-03-09 06:47 | NUR ---
END OF SHIFT PT IS A 27 Y/O F ADMITTED ON 03/05/18 FOR MEDICALLY SUPERVISED WITHDRAWALS FROM BENZO, HEROIN AND METH. PT CONTINUES ON 6 DAY PHENOBARBITAL AND 5 DAY SUBUTEX TAPER AND IS TOLERATING WELL.NO ADVERSE REACTIONS NOTED. PT IS A/O X 4.LAST COWS WAS 10 AND LAST CIWA WAS 10.PRN MEDS GIVEN : SEROQUEL,BENADRYL AND MELATONIN,WITH GOOD EFFECT.PT SLEPT 6 HRS,FLUID INTAKE WAS 750 MLS,VOIDED X 4 AND HAD 2 BOWEL MOVEMENTS .ALL SAFETY MEASURES ARE IN PLACE,SIDE RAILS UPX2 AND PADDED, BED IN LOWEST POSITION. CALL LIGHT WITHIN REACH. WILL CONTINUE TO MONITOR.
--- NOTE | 2018-03-09 07:45 | NUR ---
START OF SHIFT PT IS A 27 Y/O F ADMITTED ON 03/05/18 FOR MEDICALLY SUPERVISED BENZO, HEROIN AND METH WITHDRAWAL. TODAY IS THE FOURTH DAY OF 6 DAY PHENOBARBITAL AND 5 DAY SUBUTEX TAPER, AND TOLERATING WELL. PT HAS A DISHEVELED APPEARANCE AND A FLAT AFFECT, PRESENTS RESTLESSNESS, DIAPHORESIS, GENERALIZED BODY ACHES, ANXIETY, AGITATION, PINS AND NEEDLES SENSATIONS AND TREMORS NOTED. LAST COWS 10 AND CIWA 10. MELATONIN, SEROQUEL, BENADRYL PRNS WERE GIVEN LAST NIGHT. SIDE RAILS UPX2 AND PADDED, BED IN LOWEST POSITION. CALL LIGHT WITHIN REACH. SAFETY MEASURES IN PLACE. WILL CONTINUE TO MONITOR.
--- NOTE | 2018-03-09 08:00 | NUR ---
COWS AND CIWA ASSESSMENT COWS 10 AND CIWA 10 @0800. UPON ASSESSMENT, PT IS LAYING IN BED, AOX4. PT HAS A DISHEVELED APPEARANCE AND A FLAT AFFECT, PRESENTS RESTLESSNESS, DIAPHORESIS, GENERALIZED BODY ACHES, NASAL CONGESTION, ANXIETY, AGITATION, STOMACH CRAMPS, PUPILS LARGER THAN NORMAL, AND TREMORS NOTED.
[2018-03-09 08:05] VITALS: BP 97/61
[2018-03-09] MEDS: FLUVOXAMINE MALEATE 50 MG TABLET PO SCH ×2 (08:39→21:30)
[2018-03-09] MEDS: THIAMINE HCL 100 MG TABLET PO SCH (08:39)
[2018-03-09] MEDS: FOLIC ACID 1 MG TABLET PO SCH (08:39)
[2018-03-09] MEDS: PHENOBARBITAL 60 MG TABLET PO SCH ×3 (08:39→21:29)
[2018-03-09] MEDS: MULTIVITAMINS,THERAPEUTIC TABLET PO SCH (08:39)
[2018-03-09] MEDS: BUPRENORPHINE HCL 2 MG TAB.SUBL SL SCH ×3 (08:40→21:33)
[2018-03-09] MEDS: GABAPENTIN 300 MG CAPSULE PO PRN ×3 (10:07→21:30)
--- NOTE | 2018-03-09 10:07 | NUR ---
PRN GABAPENTIN 600 MG PO PRNS GIVEN FOR ANXIETY. WILL MONITOR AND REASSESS.
--- NOTE | 2018-03-09 11:07 | NUR ---
REASSESSMENT Pt is in her room laying in bed, appears calm and relaxed. Pt stated, "gabapentin helps me a lot with everything. I am feeling okay." Will continue to monitor.
[2018-03-09 12:00] VITALS: BP 112/76
--- NOTE | 2018-03-09 14:53 | NUR ---
PRN Gabapentin 600 mg po prn given for anxiety, pt reports anxiety 04/02. Will monitor and reassess.
--- NOTE | 2018-03-09 15:53 | NUR ---
REASSESSMENT Pt is currently in room laying in bed, appears to be sleeping. Respirations even and unlabored. Will continue to monitor.
--- NOTE | 2018-03-09 16:00 | NUR ---
COWS AND CIWA ASSESSMENT COWS 11 and CIWA 13 @1600. Pt is highly agitated, anxious, and irritated. Pt states she does not want to complete detox and wants to be discharged. Explained to pt that it would be unsafe to leave in the middle of a taper at this time. Pt was highly agitated and started yelling at staff about wanting to make a phone call. Pt continues to have sweating, generalized body aches, restlessness, tremors, and nasal congestion.
--- NOTE | 2018-03-09 16:05 | NUR ---
REASSESSMENT Pt reports clonidine was "partly effective" for chills, sweating, cold/hot flashes and anxiety. Encouraged pt to use deep breathing exercises for relaxation. Addendum: 03/09/18 at 1852 by HERBERT BAÑUELOS RN Incorrect patient.
[2018-03-09 16:30] VITALS: BP 92/53
[2018-03-09] MEDS: HYDROXYZINE PAMOATE 25 MG CAPSULE PO PRN (18:26)
--- NOTE | 2018-03-09 18:29 | NUR ---
PRN Vistaril 25 mg po prn given for c/o anxiety; will monitor and reassess.
--- NOTE | 2018-03-09 18:32 | NUR ---
End of Shift Pt has been isolative in room during shift, with alternating moods. Pt was highly agitated and upset, yelling at staff mid-shift, using foul language and raising her voice outside her door. Pt was able to be redirected. Pt stated she wanted to leave AMA because stating she "feels fine and don't need to be here." Reassured pt that the medications are helping her to feel that way and explained that it would be unsafe to leave in the middle of the taper; pt stated she will continue to stay until discharge and apologized for her behavior. Last COWS 11 and CIWA 13 @1600. Gabapentin 600 mg po prns x2 given during shift. Pt ate mostly 75% of meals. Fluid intake 1380 ml, voided x3, bm x1. Safety measures in place. Will give endorsement to night auditor nurse.
--- NOTE | 2018-03-09 19:30 | NUR ---
START OF SHIFT Received 27 year old female patient admitted on 03/05/18 for Benzodiazepine, Heroin, Suboxone, Methamphetamine, ETOH and Marijuana withdrawal. Pt is alert and oriented x4. Pt reports body aches, chills, sweats, increased anxiety, insomnia, restlessness, lightheadedness, and agitation . Pt is receiving a 6 day Phenobarbital and 5 day Subutex taper and tolerating well. Per endorsement, pt received PRN Gabapentin and Vistaril. Last COWS:11, CIWA:13 at 1600. Breathing is even and unlabored, safety measures in place. Will monitor.
--- NOTE | 2018-03-09 19:35 | NUR ---
PRN VISTARIL REASSESSMENT Pt reports Vistaril is ineffective. She states " I'm so restless, I can't sit still."
[2018-03-09 20:00] VITALS: BP 114/70
--- NOTE | 2018-03-09 20:00 | NUR ---
COWS/CIWA Pt reports body aches, chills, sweats, increased anxiety, insomnia, restlessness, lightheadedness, and agitation. COWS: 15, CIWA:14. Will monitor.
[2018-03-09] MEDS: QUETIAPINE FUMARATE 100 MG TABLET PO PRN (21:29)
[2018-03-09] MEDS: ARIPIPRAZOLE 10 MG TABLET PO SCH (21:29)
[2018-03-09] MEDS: CLONIDINE HCL 0.1 MG TABLET PO PRN (21:31)
[2018-03-09] MEDS: METHOCARBAMOL 750 MG TABLET PO PRN (21:32)
[2018-03-09] MEDS: diphenhydrAMINE 50 MG CAPSULE PO PRN (21:32)
--- NOTE | 2018-03-09 21:32 | NUR ---
PRN SEROQUEL, ROBAXIN, CLONIDINE, BENADRYL, GABAPENTIN Pt complains of body aches, increased anxiety, insomnia, chills, and sweats. Pt reports " I cannot sit still right now. I can't stop moving, I'm also having pain on my legs and back." PRN Seroquel, Robaxin, Clonidine, Benadryl and Gabapentin administered as ordered. Will monitor effectiveness.
[2018-03-09] MEDS: NORETHINDRONE 0.35 MG PO SCH (21:33)
--- NOTE | 2018-03-09 22:32 | NUR ---
PRN SEROQUEL, ROBAXIN, CLONIDINE, BENADRYL REASSESSMENT PRN medications are effective. Patient is lying in bed with eyes closed and is noted to be asleep. Breathing is even and unlabored, safety measures in place. Will monitor.
--- NOTE | 2018-03-10 | NUR ---
VITALS REFUSED, COWS/CIWA DEFERRED 0000 vitals refused at beginning of shift. Pt stated " If I'm sleeping don't wake me up. I have a hard time going back to sleep." COWS and CIWA deferred d/t pt is lying in bed with eyes closed and is noted to be asleep. Breathing is even and unlabored, safety measures in place. Will monitor.
[2018-03-10 01:30] VITALS: BP 90/55
--- NOTE | 2018-03-10 01:30 | NUR ---
COWS/CIWA Pt noted with sweats, anxiety, agitation, restlessness, body aches, lightheadedness and yawning. COWS:11, CIWA:9. Will monitor.
[2018-03-10] MEDS: MELATONIN 3 MG TABLET PO PRN (01:33)
--- NOTE | 2018-03-10 01:33 | NUR ---
PRN MELATONIN Pt states " I woke up cause I got hungry, now I'm awake and I can't go back to sleep." PRN Melatonin administered as ordered. Safety measures in place. Will monitor effectiveness.
--- NOTE | 2018-03-10 02:33 | NUR ---
PRN MELATONIN REASSESSMENT PRN medication effective. Pt is lying in bed with eyes closed and is noted to be asleep. Breathing is even and unlabored, safety measures in place. Will continue to monitor.
--- NOTE | 2018-03-10 04:07 | NUR ---
VITALS REFUSED, COWS/CIWA DEFERRED 0400 vitals refused at beginning of shift. Pt stated " If I'm sleeping don't wake me up. I have a hard time going back to sleep." COWS and CIWA deferred d/t pt is lying in bed with eyes closed and is noted to be asleep. Breathing is even and unlabored, safety measures in place. Will continue to monitor.
--- NOTE | 2018-03-10 07:13 | NUR ---
END OF SHIFT Pt is a 27 year old female patient admitted on 03/05/18 for Benzodiazepine, Heroin, Suboxone, Methamphetamine, ETOH and Marijuana withdrawal. Pt remains alert and oriented x4. Pt reported body aches, chills, sweats, increased anxiety, insomnia, restlessness, lightheadedness, and agitation during the shift. She continues on a 6 day Phenobarbital and 5 day Subutex taper and tolerating well. She received PRN Robaxin, Clonidine, Benadryl, Seroquel, and Melatonin. She slept a total of 7 hrs, Intake: 855mL, Void: x2, BM:0, COWS:11, CIWA:9 at 0130. Breathing is even and unlabored, safety measures in place. Endorsed to AM shift.
--- NOTE | 2018-03-10 07:57 | NUR ---
START OF SHIFT Pt is a 27 y/o f admitted on 03/05/18 for medically supervised benzo, opiate and meth withdrawal. Today is the 5th day of a 6 day phenobarbital and 5 day subutex taper. Pt has a disheveled appearance, a flat affect with labile mood. Pt presents restlessness, anxiety, agitation, irritation, diaphoresis, nasal congestion, generalized body aches, tremors are noted. Encouraged pt to attend groups to promote coping skills and to maintain sobriety. Last COWS 11 and CIWA 9 and pt has been given seroquel, gabapentin, robaxin, clonidine and benadryl PRNs last night. Side rails upx2, bed is in low position. Call light within reach. Will continue to monitor.
[2018-03-10 08:00] VITALS: BP 111/63
--- NOTE | 2018-03-10 08:00 | NUR ---
COWS AND CIWA ASSESSMENT COWS 11 AND CIWA 11 0800. Pt has a disheveled appearance, a flat affect with labile mood. Pt presents restlessness, anxiety, agitation, irritation, diaphoresis, nasal congestion, generalized body aches, tremors are noted.
[2018-03-10] MEDS ORDERED: BUPRENORPHINE HCL 2 MG TAB.SUBL SL SCH (09:00)
[2018-03-10] MEDS: FLUVOXAMINE MALEATE 50 MG TABLET PO SCH ×2 (09:24→21:30)
[2018-03-10] MEDS: GABAPENTIN 300 MG CAPSULE PO PRN ×3 (09:25→21:29)
[2018-03-10] MEDS: FOLIC ACID 1 MG TABLET PO SCH (09:25)
[2018-03-10] MEDS: PHENOBARBITAL 60 MG TABLET PO SCH ×2 (09:25→21:30)
[2018-03-10] MEDS: THIAMINE HCL 100 MG TABLET PO SCH (09:25)
[2018-03-10] MEDS: MULTIVITAMINS,THERAPEUTIC TABLET PO SCH (09:25)
--- NOTE | 2018-03-10 09:25 | NUR ---
PRN Gabapentin 600 mg po prn given for anxiety and generalized body aches. Will monitor and reassess.
--- NOTE | 2018-03-10 10:25 | NUR ---
REASSESSMENT Pt reports gabapentin is effective for decreasing her anxiety. Will monitor and reassess.
--- NOTE | 2018-03-10 12:00 | NUR ---
COWS AND CIWA ASSESSMENT 1200 COWS 09 AND CIWA 10. Pt is talking with peers, coming out of group. Pt presents hyperactivity, anxiety, agitation, mild irritation, diaphoresis, nasal congestion, generalized body aches, slight tremors are noted.
[2018-03-10 12:30] VITALS: BP 111/67
[2018-03-10 16:00] VITALS: BP 115/66
--- NOTE | 2018-03-10 16:00 | NUR ---
COWS AND CIWA ASSESSMENT 1600 COWS 11 AND CIWA 9. Pt presents hyperactivity, anxiety, agitation, diaphoresis, nasal congestion, generalized body aches, tremors are noted.
--- NOTE | 2018-03-10 16:43 | NUR ---
Therapist prompted client to attend twice daily group therapy sessions.
--- NOTE | 2018-03-10 18:31 | NUR ---
END OF SHIFT Pt has been compliant with med regimen and plan of care. Pt has been attending and participating in groups. Last COWS 9 and CIWA 10. Gabapentin 600 mg x2 po prn given. Pt ate mostly 75% of meals, voidedx3, bmx1, fluid intake: 4355 ml. Safety measures in place. Will endorse to assistant casino shift manager nurse.
--- NOTE | 2018-03-10 19:12 | NUR ---
Start of shift note Received report from day shift nurse. Pt is a 27 yo Female, A+Ox4, presenting to [facility] for Benzo/ETOH/Opiate/Meth withdrawal. Pt noted with anxiety, agitation, and restlessness. Pt has HX of anxiety, depression, OCD, and ADD which will be monitored during shift. Pt is on 6 day Phenobarbital and has completed 5 day Subutex taper, tolerated well. Respirations even and unlabored. Will continue to monitor.
[2018-03-10 20:02] VITALS: BP 114/64
--- NOTE | 2018-03-10 20:02 | NUR ---
COWS and CIWA Assessment COWS: 11 and CIWA: 11. Pt noted with fine tremors, pulse 81-100, sweat on forehead, anxiety, agitation, itchiness, chills, restlessness, and runny nose. Respirations even and unlabored. Will continue to monitor.
[2018-03-10] MEDS: CLONIDINE HCL 0.1 MG TABLET PO PRN (20:11)
[2018-03-10] MEDS: HYDROXYZINE PAMOATE 25 MG CAPSULE PO PRN (20:11)
--- NOTE | 2018-03-10 20:11 | NUR ---
PRN Clonidine and Vistaril Pt c/o anxiety and requested for PRN Clonidine and Vistaril. Medication given and tolerated well. Will reassess within 1 HR. Will continue to monitor.
--- NOTE | 2018-03-10 21:05 | NUR ---
PRN Clonidine and Vistaril Reassessment Medications effective. Pt expresses reduction in anxiety. No s/s of ASE noted at this time. Respirations even and unlabored. Will continue to monitor.
[2018-03-10] MEDS: diphenhydrAMINE 50 MG CAPSULE PO PRN (21:29)
[2018-03-10] MEDS: QUETIAPINE FUMARATE 100 MG TABLET PO PRN (21:29)
--- NOTE | 2018-03-10 21:29 | NUR ---
PRN Gabapentin, Benadryl, and Seroquel Pt c/o restless legs and inability to sleep and requested for PRN gabapentin, Benadryl, and Seroquel. Medications given and tolerated well. Will reassess within 1 HR. Will continue to monitor.
[2018-03-10] MEDS: ARIPIPRAZOLE 10 MG TABLET PO SCH (21:30)
[2018-03-10] MEDS: NORETHINDRONE 0.35 MG PO SCH (21:30)
--- NOTE | 2018-03-10 22:20 | NUR ---
PRN Gabapentin, Benadryl, and Seroquel Reassessment Medications effective. Pt is resting well in bed. No s/s of ASE noted at this time. Respirations even and unlabored. Will continue to monitor.
--- NOTE | 2018-03-11 00:30 | NUR ---
V/S refused and COWS and CIWA deferred for sleep. Respirations even and unlabored. Will continue to monitor.
--- NOTE | 2018-03-11 01:30 | NUR ---
PRN Melatonin Pt c/o inability to sleep and requested for PRN Melatonin. Medication given and tolerated well. Will reassess within 1 HR. Will continue to monitor.
[2018-03-11] MEDS: MELATONIN 3 MG TABLET PO PRN (01:31)
--- NOTE | 2018-03-11 02:20 | NUR ---
PRN Melatonin Reassessment Medication effective. Pt is resting well in bed. No s/s of ASE noted at this time. Respirations even and unlabored. Will continue to monitor.
--- NOTE | 2018-03-11 04:19 | NUR ---
V/S refused and COWS and CIWA deferred for sleep. Respirations even and unlabored. Will continue to monitor.
--- NOTE | 2018-03-11 07:00 | NUR ---
End of shift note Pt was continuously noted with restlessness, agitation, and anxiety. Pt remained in room for majority of shift except to get food from kitchen and to go smoke on smoking patio. Pt remained compliant and cooperative with all aspects of treatment. Pt was given PRN Clonidine and Vistaril @2010, PRN Gabapentin, Benadryl, and Seroquel @2128, and PRN Melatonin @129. Pt is on 6 day Phenobarbital taper and has completed 5 day Subutex taper, tolerated well. Pt slept for a total of 5 HRS. Last COWS: 11 and Last CIWA: 11 @1999. Respirations even and unlabored. Will endorse to day shift nurse.
--- NOTE | 2018-03-11 07:43 | NUR ---
BEGINNING OF SHIFT Patient endorsement report received from radio division captain nurse, all pertinent information was discussed. Patient with admitting Dx: Opiate/BZO withdrawal. Patient completed 5 day Subutex taper as ordered. Patient is scheduled to begin day 6 of 6 day phenobarbital taper. Patient received PRN: Vistaril, Clonidine, Benadryl, Neurontin, Seroquel and Melatonin during radio division captain, per radio division captain medications were effective. Patient with last COW score of: 11, and CIWA score of: 11. Patient with poor sleep, slept only 5 hours. Patient received awake, alert and oriented x4, educated regarding plan of care for the day and medication regimen, with good verbal understanding. Safety measures are in place. call light with in reach. Will continue to monitor closely.
[2018-03-11 08:28] VITALS: BP 91/63
[2018-03-11] MEDS: MULTIVITAMINS,THERAPEUTIC TABLET PO SCH (08:30)
[2018-03-11] MEDS: FOLIC ACID 1 MG TABLET PO SCH (08:30)
[2018-03-11] MEDS: FLUVOXAMINE MALEATE 50 MG TABLET PO SCH ×2 (08:30→22:04)
[2018-03-11] MEDS: THIAMINE HCL 100 MG TABLET PO SCH (08:30)
[2018-03-11] MEDS: GABAPENTIN 300 MG CAPSULE PO PRN ×3 (08:33→22:04)
--- NOTE | 2018-03-11 08:34 | NUR ---
PRN NEURONTIN Patient reports increase anxiety, provided with non pharmacological interventions and administered Neurontin 600mg PO as ordered, will monitor effectiveness of medication.
[2018-03-11] MEDS ORDERED: PHENOBARBITAL 60 MG TABLET PO SCH (09:00)
--- NOTE | 2018-03-11 09:00 | NUR ---
CIWA/COW ASSESSMENT Patient awake, alert and oriented x4, noted with sad and worried facial expression, Patient has a flat affect, also noted with anxious and depressed mood. Patient continues on 6 day phenobarbital taper as ordered, patient received last dose this morning. Patient presented with: c/o chills, difficultly sitting still, enlarged pupils, bone and joint aches, moist eyes, tremors that can be felt but not seen, and anxiety, patient with COW score of: 8, and CIWA score of: 10. Patient encouraged adequate PO fluid intake as tolerated, encouraged to attend group therapies/sessions to learn new coping skills to prevent relapse. safety measures in place. will continue to monitor.
--- NOTE | 2018-03-11 09:34 | NUR ---
NEURONTIN REASSESSMENT Patient reports medication effective, decrease in anxiety, will continue to monitor.
[2018-03-11] MEDS: HYDROXYZINE PAMOATE 25 MG CAPSULE PO PRN (12:01)
[2018-03-11] MEDS: CLONIDINE HCL 0.1 MG TABLET PO PRN ×2 (12:04→22:04)
--- NOTE | 2018-03-11 12:04 | NUR ---
PRN CLONIDINE/VISTARIL Patient noted with anxious mood. Reports increase in anxiety, noted anxious, agitated, episode of angry outburst, and pacing. provided patient with non pharmacological interventions with no relief, administered Clonidine 0.1mg PO and Vistaril 25mg PO as ordered, BP: 110/64 HR: 87 Will monitor effectiveness of medications.
[2018-03-11 12:37] VITALS: BP 110/64
--- NOTE | 2018-03-11 13:00 | NUR ---
CIWA/COW ASSESSMENT Patient continues to exhibit the following s/sx of withdrawal: difficultly sitting still, enlarged pupils, bone and joint aches, moist eyes, tremors that can be felt but not seen, and anxiety, patient with COW score of: 8, and CIWA score of: 9. Patient encouraged adequate PO fluid intake as tolerated, encouraged to attend group therapies/sessions to learn new coping skills to prevent relapse. safety measures in place. will continue to monitor.
--- NOTE | 2018-03-11 13:04 | NUR ---
CLONIDINE/VISTARIL REASSESSMENT Medication effective, patient noted less anxious. Verbalized feeling "i am calmer now" Encouraged patient ot participate in therapy sessions to learn new coping skills. safety measures in place. will continue to monitor. vital signs WNL.
[2018-03-11 17:19] VITALS: BP 101/61
--- NOTE | 2018-03-11 17:47 | NUR ---
PRN NEURONTIN Patient reported increase in anxiety, per MD order patient received PRN: Neurontin as ordered, will monitor effectiveness of medication.
--- NOTE | 2018-03-11 18:03 | NUR ---
Neurontin reassessment Patient reports feeling less anxious, medication effective. will continue to monitor.
--- NOTE | 2018-03-11 18:57 | NUR ---
END OF SHIFT Patient received last dose of phenobarbital taper this morning, well tolerated. Patient completed Subutex taper yesterday. At times noted with angry outburst, requires frequent calming reassurance. Patient has a flat affect, also noted with anxious and depressed mood. During shift presented with: c/o chills, difficultly sitting still, enlarged pupils, bone and joint aches, moist eyes, tremors that can be felt but not seen, and anxiety, patient with last COW score of: 8, and CIWA score of: 9.received PRN: Vistaril, Clonidine, and Neurontin x2, medications effective. Patient encouraged adequate PO fluid intake as tolerated, encouraged to attend group therapies/sessions to learn new coping skills to prevent relapse. Denies any SI/HI. Encouraged to verbalize feelings as needed. Encourage to practice self soothing techniques such as progressive muscle relaxation. Patient is scheduled to be discharged tomorrow, noted self motivated towards sobriety. Patient endorsed to third shift lieutenant nurse, all pertinent information discussed.
--- NOTE | 2018-03-11 19:15 | NUR ---
Start of shift note Received report from day shift nurse. Pt is a 27 yo female, A+Ox4, presenting to [facility] for Benzo/Opiate/Meth withdrawal. Pt noted to be anxious, agitated, and restless. Pt has HX of Anxiety, depression, OCD, and ADD which will be monitored during shift. Pt has completed 6 day Phenobarbital and 5 day Subutex tapers, tolerated well, and is due for discharge tomorrow. Respirations even and unlabored. Will continue to monitor.
[2018-03-11 20:05] VITALS: BP 98/61
--- NOTE | 2018-03-11 20:05 | NUR ---
COWS and CIWA Assessment COWS: 5 and CIWA: 5. Pt noted with restlessness, enlarged pupils, fine tremors, anxiety, and agitation. Respirations even and unlabored. Will continue to monitor.
[2018-03-11] MEDS: QUETIAPINE FUMARATE 100 MG TABLET PO PRN (22:03)
[2018-03-11] MEDS: diphenhydrAMINE 50 MG CAPSULE PO PRN (22:03)
--- NOTE | 2018-03-11 22:03 | NUR ---
PRN Benadryl, Seroquel, Clonidine, and Gabapentin Pt c/o inability to sleep, anxiety, and restless legs and requested for PRN Benadryl, Seroquel, Clonidine, and Gabapentin. Medications given and tolerated well. Will reassess within 1 HR. Will continue to monitor.
[2018-03-11] MEDS: NORETHINDRONE 0.35 MG PO SCH (22:04)
[2018-03-11] MEDS: ARIPIPRAZOLE 10 MG TABLET PO SCH (22:04)
[2018-03-11] MEDS ORDERED: DIPH50CA37 PO (22:28)
[2018-03-11] MEDS ORDERED: CLON0.1T14 PO (22:28)
[2018-03-11] MEDS ORDERED: QUET100T PO (22:28)
[2018-03-11] MEDS ORDERED: FLUV50TA10 PO (22:28)
[2018-03-11] MEDS ORDERED: HYDR-3895 PO (22:28)
[2018-03-11] MEDS ORDERED: GABA-534 PO (22:28)
--- NOTE | 2018-03-11 23:00 | NUR ---
PRN Benadryl, Seroquel, Clonidine, and Gabapentin Reassessment Medications effective. Pt expresses reduction in anxiety, reduction in restless legs, and is resting well in bed. No s/s of ASE noted at this time. Respirations even and unlabored. Will continue to monitor.
--- NOTE | 2018-03-12 00:55 | NUR ---
V/S refused. COWS and CIWA deferred for sleep. Respirations even and unlabored. Will continue to monitor.
--- NOTE | 2018-03-12 04:34 | NUR ---
COWS and CIWA Assessment V/S refused, COWS and CIWA deferred for sleep. Respirations even and unlabored. Will continue to monitor.
--- NOTE | 2018-03-12 07:00 | NUR ---
End of shift note Pt was continuously noted with agitation, anxiety, and restlessness. Pt remained in room for majority of shift except to go smoke on smoking patio and to get food from kitchen. Pt remained cooperative and compliant with all aspects of treatment throughout shift. Pt was given PRN Benadryl, Seroquel, Clonidine, and Gabapentin @2202. Pt has completed 6 day Phenobarbital and 5 day Subutex tapers, tolerated well. Pt slept for a total of 6 HRS. Last COWS: 5 and Last CIWA: 5 @1999. Respirations even and unlabored. Will endorse to day shift nurse.
--- NOTE | 2018-03-12 07:31 | NUR ---
BEGINNING OF SHIFT Patient is scheduled to be discharged this morning. Patient endorsement report received from nightclub manager nurse, all pertinent information was discussed. Patient completed 5 day Subutex taper, and completed 6 day phenobarbital taper as ordered, admitting Dx: Opiate/BZO withdrawal.Patient with last COW score of: 5, and CIWA score of: 5. Patient with intermittently sleep, slept only 6 hours. Received PRN: Benadryl, Seroquel, clonidine, and Neurontin, as per nightclub manager nurse. Patient received awake, alert and oriented x4, educated regarding plan of care for the day and medication regimen, with good verbal understanding. Safety measures are in place. call light with in reach. Will continue to monitor closely.
[2018-03-12 07:53] VITALS: BP 100/68
[2018-03-12 08:01] VITALS: BP 100/68
[2018-03-12] MEDS: THIAMINE HCL 100 MG TABLET PO SCH (08:23)
[2018-03-12] MEDS: FOLIC ACID 1 MG TABLET PO SCH (08:23)
[2018-03-12] MEDS: MULTIVITAMINS,THERAPEUTIC TABLET PO SCH (08:23)
[2018-03-12] MEDS: FLUVOXAMINE MALEATE 50 MG TABLET PO SCH (08:23)
[2018-03-12] MEDS: GABAPENTIN 300 MG CAPSULE PO PRN (08:33)
--- NOTE | 2018-03-12 09:33 | NUR ---
DISCHARGE Patient discharged off the unit at 0933, prior to discharged patient was provided with teaching and education regarding all discharge instructions with good verbal understanding. Patient noted self motivated towards sobriety. Patient with last COW: 5, last CIWA score of: 5. Patients vital signs WNL. Prior to discharge was administered Neurontin at 0833, for anxiety medication was effective, one hour post administration, verbalized feeling calm and less anxious. Patients discharge instructions, home medications, and prescriptions were placed in patients personal duffel bag. Patient off the unit at 0933 in stable condition.
== END 2018-03-12 09:33 | disposition other institution (70) | DRG 895 ==
LOC: SRC 03-05 14:21
PROVIDERS: ADMIT Family Medicine Addiction Medicine; ATTEND Family Medicine Addiction Medicine
PROC: HZ2ZZZZ Detoxification Services for Substance Abuse Treatment (ICD-10-PCS; principal; 2018-03-05)
PROC: HZ31ZZZ Individual Counseling for Substance Abuse Treatment, Behavioral (ICD-10-PCS; 2018-03-08)
PROC: HZ41ZZZ Group Counseling for Substance Abuse Treatment, Behavioral (ICD-10-PCS; 2018-03-10)
DX: F13.230 Sedative, hypnotic or anxiolytic dependence with withdrawal, uncomplicated (principal); F10.229 Alcohol dependence with intoxication, unspecified; Y90.0 Blood alcohol level of less than 20 mg/100 ml; F11.23 Opioid dependence with withdrawal; F42.9 Obsessive-compulsive disorder, unspecified; Z81.1 Family history of alcohol abuse and dependence; F41.0 Panic disorder [episodic paroxysmal anxiety]; F32.9 Major depressive disorder, single episode, unspecified; G47.00 Insomnia, unspecified; F15.229 Other stimulant dependence with intoxication, unspecified; F12.90 Cannabis use, unspecified, uncomplicated; F17.210 Nicotine dependence, cigarettes, uncomplicated; Z79.899 Other long term (current) drug therapy
CPT/HCPCS: 36415; 70030-TC; 80307; 83735; 84703; 85025; 86592; 86705; 86803; 87086; 87340; 87806; G0480; J3411; J8499; Q0163